=== PATIENT | female | born 1960 | race Caucasian/White ===

== ENCOUNTER → 2020-10-26 10:08 | Outpatient (CLI) | payer OTHER, SELFPAY ==
[2020-10-26] MEDS: COVID-19 VACC #1, MRNA(MOD) 100 MCG/0.5 ML VIAL IM (10:16)
== END ==
PROVIDERS: Visit Provider Internal Medicine
DX: Z23 Encounter for immunization (principal)
CPT/HCPCS: 0011A; 91301

== ENCOUNTER → 2020-11-23 10:05 | Outpatient (CLI) | payer OTHER, SELFPAY ==
[2020-11-23] MEDS: COVID-19 VACC #2, MRNA(MOD) 100 MCG/0.5 ML VIAL IM (10:09)
== END ==
PROVIDERS: Visit Provider Internal Medicine
DX: Z23 Encounter for immunization (principal)
CPT/HCPCS: 0012A; 91301

== ENCOUNTER → 2023-05-29 | Outpatient (CLI) | payer OTHER, SELFPAY | PROVIDERS: Referring Provider Family Medicine; Visit Provider Family Medicine | DX: Z23 Encounter for immunization (principal) | CPT/HCPCS: 90471; 90686 ==

== ENCOUNTER 2023-08-17 15:57 | Emergency (ER) | payer OTHER, SELFPAY ==
[2023-08-17 16:10] VITALS: BP 141/63; PULSE 76; RESP 16; TEMP 37; O2SAT 96; BMI 20.7
--- NOTE | 2023-08-17 16:16 | DI.RAD.S_ITS ---
PROCEDURE: XR HAND RT MIN 3V INDICATIONS: Direct blow with swelling TECHNIQUE: 3 views of the hand(s) acquired. COMPARISON: None. FINDINGS: Bones: No fractures or dislocations. Carpal bones are normally aligned. No suspicious bony lesions. Carpometacarpal joint space narrowing marginal osteophyte present. Soft tissues: No suspicious soft tissue calcifications. IMPRESSION: CMC osteoarthritis. No fracture. Approved by: Sreedhar Valadez M.D. on 08/17/2023 at 16:25
--- NOTE | 2023-08-17 16:16 | DI.RAD.S_ITS ---
PROCEDURE: XR WRIST RT MIN 3V INDICATIONS: Direct blow with swelling TECHNIQUE: 4 views of the wrist were acquired. COMPARISON: None. FINDINGS: Bones: No fractures or dislocations. No suspicious bony lesions. Carpometacarpal joint space narrowing and marginal osteophyte Soft tissues: No suspicious soft tissue calcifications. IMPRESSION: CMC osteoarthritis. No fracture. Approved by: Sreedhar Valadez M.D. on 08/17/2023 at 16:29
--- NOTE | 2023-08-17 16:59 | ED_ITS ---
HPI - Extremity Injury (Upper) <Celine Camejo PA-C - Last Filed: 08/17/23 19:49> General Chief Complaint: Extremity Injury, Upper Stated Complaint: Hurt at work, [employer] Time Seen by Provider: 08/17/23 16:32 Source: patient Mode of arrival: Ambulatory History of Present Illness HPI narrative: Patient is a 62-year-old female presenting for evaluation for L&I work evaluation. 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 She states that while cleaning a hat to catch urine, the top of the toilet slammed down onto the base of her right thumb. Denies any numbness since the incident. She has some mobility of her right thumb, denies any wrist pain. She does have difficulty opposing thumb to 3rd 4th and 5th fingers due to pain over the base of her right thumb. Related Data Previous Rx's Medication Instructions Recorded chlorhexidine gluconate 0.12 % 473 ml PO BID ##1 08/03/16 mouthwash (Peridex) clindamycin HCl 300 mg capsule 300 mg PO Q6H #40 caps 08/03/16 oxycodone-acetaminophen 5 mg-325 0 PO Q4H PRN #14 tabs 08/03/16 mg tablet (Percocet) prednisone 20 mg tablet 0 PO QDAY #7 tabs 08/03/16 Allergies Allergy/AdvReac Type Severity Reaction Status Date / Time No Known Drug Allergies Allergy Verified 08/17/23 16:16 Review of Systems <Celine Camejo PA-C - Last Filed: 08/17/23 19:49> Review of Systems Narrative: See HPI Patient History <Celine Camejo PA-C - Last Filed: 08/17/23 19:49> Social History Smoking Status: Never smoker Smoking Status: Never smoker alcohol intake frequency: holidays/special occasions only Substance Use Type: does not use Exam <Celine Camejo PA-C - Last Filed: 08/17/23 19:49> Initial Vital Signs Initial Vital Signs: Vital Signs Temperature 98.6 F 08/17/23 16:10 Pulse Rate 76 08/17/23 16:10 Respiratory Rate 16 08/17/23 16:10 Blood Pressure 141/63 H 08/17/23 16:10 Pulse Oximetry 96 08/17/23 16:10 Oxygen Delivery Method Room Air 08/17/23 16:10 GENERAL: 62 year old patient appears stated age. Well-developed patient, in no acute distress. HEAD: Atraumatic. Normocephalic. EYES: Pupils equal round No scleral icterus. No injection or drainage. NECK: Trachea midline, supple RESPIRATORY: Speaking comfortably normal tone of voice without any increased work of breathing. 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 She also demonstrates decreased ability to oppose thumb to 3rd through 5th fingers of right hand. CSM of right thumb intact NEURO: AOx3. SKIN: No rash or erythema of visible areas <Faye Howell DO - Last Filed: 08/17/23 21:03> Initial Vital Signs Initial Vital Signs: Vital Signs Temperature 98.6 F 08/17/23 16:10 Pulse Rate 76 08/17/23 16:10 Respiratory Rate 16 08/17/23 16:10 Blood Pressure 141/63 H 08/17/23 16:10 Pulse Oximetry 96 08/17/23 16:10 Oxygen Delivery Method Room Air 08/17/23 16:10 Course <Celine Camejo PA-C - Last Filed: 08/17/23 19:49> Orders Ordered: ED Orders 08/17/23 16:16 XR hand RT min 3V Stat XR wrist RT min 3V Stat Vital Signs Vital signs: Vital Signs - 8 hr 08/17/23 16:10 08/17/23 18:27 Temperature 98.6 F Pulse Rate 76 70 Respiratory Rate 16 20 Blood Pressure 141/63 H 133/56 L Pulse Oximetry 96 96 Oxygen Delivery Method Room Air Room Air <DO Lola Lopez Last Filed: 08/17/23 21:03> Orders Ordered: ED Orders 08/17/23 16:16 XR hand RT min 3V Stat XR wrist RT min 3V Stat Vital Signs Vital signs: Vital Signs - 8 hr 08/17/23 16:10 08/17/23 18:27 Temperature 98.6 F Pulse Rate 76 70 Respiratory Rate 16 20 Blood Pressure 141/63 H 133/56 L Pulse Oximetry 96 96 Oxygen Delivery Method Room Air Room Air MDM - Extremity Injury (Upper) <Celine Camejo PA-C - Last Filed: 08/17/23 19:49> Imaging Data Wrist x-ray: Radiologist's Impression: PROCEDURE: XR WRIST RT MIN 3V INDICATIONS: Direct blow with swelling TECHNIQUE: 4 views of the wrist were acquired. COMPARISON: None. FINDINGS: Bones: No fractures or dislocations. No suspicious bony lesions. Carpometacarpal joint space narrowing and marginal osteophyte Soft tissues: No suspicious soft tissue calcifications. Hand x-ray: Radiologist's Impression: PROCEDURE: XR HAND RT MIN 3V INDICATIONS: Direct blow with swelling TECHNIQUE: 3 views of the hand(s) acquired. COMPARISON: None. FINDINGS: Bones: No fractures or dislocations. Carpal bones are normally aligned. No suspicious bony lesions. Carpometacarpal joint space narrowing marginal osteophyte present. Soft tissues: No suspicious soft tissue calcifications. IMPRESSION: CMC osteoarthritis. No fracture. Approved by: Sreedhar Valadez M.D. on 08/17/2023 at 16:25 [facility] Narrative Medical decision making narrative: Patient is a 62-year-old female presenting for L&I evaluation for right thumb pain after sustaining trauma at work. A toilet seat fell hard onto her right thumb yesterday. She is having decreased range of motion. X-rays did not show any evidence of fracture so diagnosed with wrist strain due to the pain at the proximal end of her 1st metacarpal. Recommend that she wear a prefabricated thumb spica splint over this area to help support and reduce further trauma. She may take this off to maintain mobility, but recommend elevation compression with an Trell wrap, ice and Tylenol ibuprofen as needed. She may advance activity as tolerated. I advised her to follow up with [facility] occupational health and have included the number in the discharge paperwork. She is agreeable with this plan of care. Multiple etiologies for patient's symptoms considered including, but not limited to: Fracture, strain, contusion Patient's symptoms improved over duration of stay with above-stated therapies. Received ice and Trell wrap. She will plan to get a prefabricated thumb spica splint for herself from a pharmacy. Findings and discharge diagnosis discussed with patient/family followed by verbalization of understanding Return precautions discussed with patient/family whom verbalize understanding of diagnosis and plan Discharge Plan Departure Patient Disposition: Home Clinical Impression: Sprain and strain of wrist Instructions: DI for Wrist Sprain Activity Restrictions/Additional Instructions: Thank you for coming in today for your care. Good news, there was no evidence of a fracture over your thumb or wrist. It is likely you have a strain of your right wrist from the trauma you sustained at work. I recommend continued follow up [facility] at [phone] for continued follow up. I recommend you keep your right wrist in an Trell wrap for support and compression. A pre fabricated thumb spica splint may be helpful to help protect your right thumb at work while your healing. I recommend activity as tolerated, rest of this area, ice elevation and compression. You may also take ibuprofen. Please follow up to emergency department if you should develop any sudden numbness, severe pain or significant swelling of this area or other concerning signs or symptoms. Prescriptions: No Action clindamycin HCl 300 MG capsule 300 mg PO Q6H Qty: 40 0RF prednisone 20 MG tablet 0 PO QDAY Qty: 7 0RF oxycodone-acetaminophen [Percocet] 5 MG/325 MG tablet 0 PO Q4H PRNQty: 14 0RF chlorhexidine gluconate [Peridex] 473 ML mouthwash 473 ml PO BID Qty: 1 0RF Stand Alone Forms: Patient Portal/API ED Sign-out <Faye Howell DO - Last Filed: 08/17/23 21:03> Cosign ED Attending Nirmala Attestation: I was immediately available in the department for consultation.
[2023-08-17 18:27] VITALS: BP 133/56; PULSE 70; RESP 20; O2SAT 96
== END 2023-08-17 18:45 | disposition home or self-care (01) ==
PROVIDERS: Emergency Provider Physician Assistant
DX: S63.501A Unspecified sprain of right wrist, initial encounter (principal); S66.911A Strain of unspecified muscle, fascia and tendon at wrist and hand level, right hand, initial encounter; W23.0XXA Caught, crushed, jammed, or pinched between moving objects, initial encounter; Y92.238 Other place in hospital as the place of occurrence of the external cause; Y99.0 Civilian activity done for income or pay
CPT/HCPCS: 73110; 73130; 99283

== ENCOUNTER → 2024-05-26 17:42 | Outpatient (CLI) | payer OTHER, SELFPAY | PROVIDERS: Referring Provider Internal Medicine; Visit Provider Internal Medicine | DX: Z23 Encounter for immunization (principal) | CPT/HCPCS: 90471; 90656 ==